=== PATIENT | female | born 1995 | race Caucasian/White ===

== ENCOUNTER 2025-08-13 06:47 | Emergency (ER) | payer MEDICAID ==
[~2025-08-13] VITALS: Ht 165.1 cm; Wt 119.3 kg
[~2025-08-13 06:47] MED LIST: MEDR10TA11 MT
[2025-08-13 06:49] VITALS: O2SAT 98
[2025-08-13 08:35] LABS: BASOPHILS % 0.3 % (0.0-2.0); EOSINOPHILS % 2.2 % (0.0-5.0); HEMATOCRIT. 29.9 % (36.0-48.0); HEMOGLOBIN. 9.7 g/dL (12.0-16.0); LYMPHOCYTES % 35.3 % (20.0-50.0); MEAN PLATELET VOLUME 8.6 fl (7.4-10.4); MONOCYTES % 4.4 % (2.0-8.0); NEUTROPHILS % 57.8 % (40.0-76.0); PLATELET 351 x1000/uL (130-400); RED BLOOD CELL COUNT 3.82 mill/uL (4.2-5.4); RED CELL DISTRIBUTION WIDTH 17.5 % (11.6-14.6)
[2025-08-13 08:46] LABS: INR 0.9
[2025-08-13 08:48] LABS: CREATININE 0.7 mg/dL (0.6-1.0); UREA NITROGEN BLOOD 8 mg/dL (9-23)
[2025-08-13 08:52] LABS: HCG SCREEN NEGATIVE
[2025-08-13 08:53] LABS: CLARITY URINE CLOUDY (CLEAR); COLOR URINE RED (YELLOW); GLUCOSE URINE NEGATIVE (NEGATIVE); KETONES URINE NEGATIVE (NEGATIVE); LEUKOCYTE ESTERASE URINE 1+ (NEGATIVE); NITRITE URINE NEGATIVE (NEGATIVE); OCCULT BLOOD URINE 3+ (NEGATIVE); PH URINE 5.0 (4.5-8.0); PROTEIN URINE 2+ (NEGATIVE); SPECIFIC GRAVITY URINE 1.014 (1.005-1.030); UROBILINOGEN URINE 0.2 E.U./dL (0.2-1.0)
[2025-08-13 09:14] LABS: SQUAMOUS EPITHELIAL CELL URINE FEW /lpf (RARE/1+)
[2025-08-13 09:15] LABS: BACTERIA URINE NONE SEEN; RBC URINE TNTC /hpf (0-2); WBC URINE 0-2 /hpf (0-2); YEAST URINE NONE SEEN
[2025-08-13] MEDS ORDERED: MEDR10TA11 MT (09:34)
[2025-08-13] MEDS: KETOROLAC 30MG/ML VIAL IM ONE (09:51)
[2025-08-13 10:00] VITALS: BP 121/79; PULSE 84; RESP 18; TEMP 36.9; O2SAT 100
== END 2025-08-13 10:44 | disposition home or self-care (01) ==
LOC: ER 06:47
DX: N93.9 Abnormal uterine and vaginal bleeding, unspecified (principal); D64.9 Anemia, unspecified; Z79.3 Long term (current) use of hormonal contraceptives; Z98.890 Other specified postprocedural states
CPT/HCPCS: 99283; 80048; 81003; 81025; 84703; 85025; 85610; 85730; 86850; 86900; 86901; 36415; 96372; J1885